=== PATIENT | female | born 1965 | race Caucasian/White ===

== ENCOUNTER 2019-12-28 01:42 | Emergency (ER) | payer BC ==
[2019-12-28 02:10] LABS: BASOPHIL % 0.3 % (0.0-0.4); Basophil (Absolute #) 0.02 (0-0.4); Eosinophil % 2.8 % (0.00-5.0); Eosinophil (Absolute #) 0.21 (0-0.5); Hematocrit 40.1 % (35-47); Hemoglobin 13.4 gm/dl (12.0-16.0); Lymphocyte (Absolute #) 2.26 (1.0-4.6); Lymphocytes % 30.2 % (24.0-44.0); Mean Cell Volume 93.3 fl (78-100); Mean Corpuscular Hemoglobin 31.2 pg (26-32); Mean Corpuscular Hgb Concent. 33.4 g/dl (32-36); Mean Platelet Volume 8.8 fl (7.5-11.0); Monocytes % 10.7 % (0.0-12.0); Platelet Count 311 K/mm3 (150-450); Red Cell Distribution Width 12.6 % (11.5-14.0); White Blood Count 7.5 K/mm3 (4.0-10.5)
--- NOTE | 2019-12-28 02:11 | ERPHSYRPT ---
- History of Present Illness Time Seen by Provider: 12/28/19 01:44 Source: patient Exam Limitations: no limitations Patient Subjective Stated Complaint: "I just felt real hyped up all of sudden and felt like I was going to pass out." Triage Nursing Assessment: . Physician History: 54 yo wf awoke w palpatations/diaphoresis/nause/lightheadedness that lasted 15min. She denies vomiting/chest pain/dyspnea/fever/melena/hematochezia/focal weakness. She has been taking Claritin-D for about 10 days w last dose this AM. Timing/Duration: hour(s) (Staerted 1 hr ago and lasted 15min) Activities at Onset: sleep Quality: other (No chest pain) Location: other (No chest pain) Chest Pain Radiation: no radiation Severity of Pain-Max: none Severity of Pain-Current: none Modifying Factors: Improves With: nothing Nitro Today/Relief: no nitro taken today Aspirin Treatment Today: no aspirin today Associated Symptoms: nausea, diaphoresis, No vomiting, No abdominal pain, No shortness of breath, No heartburn, No cough, No chills, No chest pain, No fever , No headaches, No loss of appetite, No malaise, No rash, No syncope, No seizure , No weakness Prior Chest Pain/Cardiac Workup: no prior chest pain, no prior cardiac workup Allergies/Adverse Reactions: No Known Drug Allergies Allergy (Unverified 12/28/19 01:45) Home Medications: Dexlansoprazole [Dexilant] 60 mg PO BID 01/29/15 [History] Levothyroxine Sodium 50 mcg 12/28/19 [History] Hx Tetanus, Diphtheria Vaccination/Date Given: No Hx Influenza Vaccination/Date Given: No Travel Risk - International Travel Have you traveled outside of the country in past 3 weeks: No Have you or anyone close to you been diagnosed with or: No Do your reside in a community with a known COVID-19 case?: Yes If Yes where:: [facility] - Coronavirus Screening Has patient experienced Coronavirus symptoms: No - Review of Systems Constitutional: No Symptoms Eyes: No Symptoms Ears, Nose, & Throat: No Symptoms Respiratory: No Symptoms Cardiac: Palpitations Abdominal/Gastrointestinal: Nausea, No Abdominal Pain, No Vomiting, No Diarrhea , No Constipation, No Hematemesis, No Hematochezia, No Melena, No Appetite Changes Genitourinary Symptoms: No Symptoms Musculoskeletal: No Symptoms Skin: No Symptoms Neurological: No Symptoms, Dizziness Psychological: No Symptoms Endocrine: No Symptoms Hematologic/Lymphatic: No Symptoms Immunological/Allergic: No Symptoms - Past Medical History Pertinent Past Medical History: Yes Neurological History: No Pertinent History ENT History: No Pertinent History Cardiac History: No Pertinent History Respiratory History: No Pertinent History Endocrine Medical History: No Pertinent History Musculoskeletal History: No Pertinent History GI Medical History: Gallbladder Disease History: No Pertinent History Psycho-Social History: No Pertinent History Female Reproductive Disorders: No Pertinent History - Past Surgical History Past Surgical History: Yes Neuro Surgical History: No Pertinent History Cardiac: No Pertinent History Respiratory: No Pertinent History Gastrointestinal: Cholecystectomy Genitourinary: No Pertinent History Musculoskeletal: No Pertinent History Female Surgical History: No Pertinent History - Social History Smoking Status: Former smoker Exposure to second hand smoke: No Drug Use: none Patient Lives Alone: No Significant Family History: no pertinent family hx - Nursing Vital Signs Nursing Vital Signs: Initial Vital Signs Temperature 98 F 12/28/19 01:43 Pulse Rate 80 12/28/19 01:43 Respiratory Rate 18 12/28/19 01:43 Blood Pressure 136/93 12/28/19 01:43 O2 Sat by Pulse Oximetry 100 12/28/19 01:43 Pain Scale Pain Intensity 0 - Physical Exam General Appearance: no apparent distress, anxiety Eye Exam: PERRL/EOMI, eyes nml inspection Ears, Nose, Throat Exam: normal ENT inspection, TMs normal, pharynx normal, moist mucous membranes Neck Exam: normal inspection, non-tender, supple, full range of motion Respiratory Exam: normal breath sounds, lungs clear, airway intact, No respiratory distress Cardiovascular Exam: regular rate/rhythm, normal heart sounds, normal peripheral pulses Gastrointestinal/Abdomen Exam: soft, normal bowel sounds Pelvic Exam: not done Rectal Exam: deferred Back Exam: normal inspection, normal range of motion, No CVA tenderness Extremity Exam: normal inspection, normal range of motion Neurologic Exam: alert, oriented x 3, cooperative, feeder associate II-XII nml as tested, normal mood/affect, nml cerebellar function, nml station & gait, sensation nml Skin Exam: normal color, warm, dry, No rash Lymphatic Exam: No adenopathy SpO2 Interpretation: normal SpO2: 100 O2 Delivery: Room Air - Course Nursing assessment & vital signs reviewed: Yes EKG Interpreted by Me: RATE (73), Sinus Rhythm, NORMAL INTERVALS, NORMAL QRS - Radiology Exams Chest X-ray Interpretation: Interpreted by me, Negative, No Pneumonia, No Pneumothorax , Nml Alignment, Nml Heart Size, No Infiltrates, Nml Mediastinum, Nml Soft Tissues Ordered Tests: Active Orders 24 hr Category Date Time Status EKG-ER Only STAT Care 12/28/19 01:45 Active CHEST 1 VIEW (PORTABLE) Stat Exams 12/28/19 01:45 Taken CBC W DIFF Stat Lab 12/28/19 02:11 Completed CMP Stat Lab 12/28/19 02:11 Completed PROTIME WITH INR Stat Lab 12/28/19 02:11 Completed PTT Stat Lab 12/28/19 02:11 Completed T4 (Thyroxine) Stat Lab 12/28/19 02:11 Completed TROPONIN Q3H Lab 12/28/19 02:11 Completed TROPONIN Q3H Lab 12/28/19 04:45 Ordered TROPONIN Q3H Lab 12/28/19 07:45 Ordered TROPONIN Q3H Lab 12/28/19 10:45 Ordered TROPONIN Q3H Lab 12/28/19 13:45 Ordered TSH, 3RD Generation Urgent Lab 12/28/19 02:11 Completed Urine Triage Profile Stat Lab 12/28/19 02:23 Completed Lab/Rad Data: Laboratory Result Diagrams 12/28/19 02:11 12/28/19 02:11 Laboratory Results 12/28/19 12/28/19 12/28/19 Range/Units 02:23 02:11 02:11 WBC (4.0-10.5) K/mm3 RBC (4.1-5.4) M/mm3 Hgb (12.0-16.0) gm/dl Hct (35-47) % MCV (78-100) fl MCH (26-32) pg MCHC (32-36) g/dl RDW (11.5-14.0) % Plt Count (150-450) K/mm3 MPV (7.5-11.0) fl Gran % (36.0-66.0) % Eos # (Auto) (0-0.5) Absolute Lymphs (auto) (1.0-4.6) Absolute Monos (auto) (0.0-1.3) Lymphocytes % (24.0-44.0) % Monocytes % (0.0-12.0) % Eosinophils % (0.00-5.0) % Basophils % (0.0-0.4) % Absolute Granulocytes (1.4-6.9) Basophils # (0-0.4) PT 12.2 (9.95-12.35) SECONDS INR 1.08 (0.8-3.0) APTT 31.1 (25.3-37.0) SECONDS Sodium (137-145) mmol/L Potassium (3.5-5.1) mmol/L Chloride (98-107) mmol/L Carbon Dioxide (22-30) mmol/L Anion Gap (5-15) MEQ/L BUN (7-17) mg/dL Creatinine (0.52-1.04) mg/dL Estimated GFR ML/MIN Glucose (74-106) mg/dL Calcium (8.4-10.2) mg/dL Total Bilirubin (0.2-1.3) mg/dL AST (14-36) U/L ALT (0-35) U/L Alkaline Phosphatase (38-126) U/L Troponin I < 0.012 (0.000-0.034) ng/mL Serum Total Protein (6.3-8.2) g/dL Albumin (3.5-5.0) g/dL Thyroxine (T4) (5.53-10.96) ug/dL TSH 3rd Generation 11.600 H (0.47-4.68) mIU/L Urine Opiates Level NEGATIVE (NEGATIVE) Ur Methadone NEGATIVE (NEGATIVE) Urine Barbiturates NEGATIVE (NEGATIVE) Ur Phencyclidine (PCP) NEGATIVE (NEGATIVE) Urine Amphetamine NEGATIVE (NEGATIVE) U Benzodiazepine Level NEGATIVE (NEGATIVE) Urine Cocaine NEGATIVE (NEGATIVE) Urine Marijuana (THC) NEGATIVE (NEGATIVE) 12/28/19 12/28/19 Range/Units 02:11 02:11 WBC 7.5 (4.0-10.5) K/mm3 RBC 4.30 (4.1-5.4) M/mm3 Hgb 13.4 (12.0-16.0) gm/dl Hct 40.1 (35-47) % MCV 93.3 (78-100) fl MCH 31.2 (26-32) pg MCHC 33.4 (32-36) g/dl RDW 12.6 (11.5-14.0) % Plt Count 311 (150-450) K/mm3 MPV 8.8 (7.5-11.0) fl Gran % 56.0 (36.0-66.0) % Eos # (Auto) 0.21 (0-0.5) Absolute Lymphs (auto) 2.26 (1.0-4.6) Absolute Monos (auto) 0.80 (0.0-1.3) Lymphocytes % 30.2 (24.0-44.0) % Monocytes % 10.7 (0.0-12.0) % Eosinophils % 2.8 (0.00-5.0) % Basophils % 0.3 (0.0-0.4) % Absolute Granulocytes 4.20 (1.4-6.9) Basophils # 0.02 (0-0.4) PT (9.95-12.35) SECONDS INR (0.8-3.0) APTT (25.3-37.0) SECONDS Sodium 139 (137-145) mmol/L Potassium 3.4 L (3.5-5.1) mmol/L Chloride 104 (98-107) mmol/L Carbon Dioxide 28 (22-30) mmol/L Anion Gap 10.7 (5-15) MEQ/L BUN 15 (7-17) mg/dL Creatinine 0.70 (0.52-1.04) mg/dL Estimated GFR > 60.0 ML/MIN Glucose 130 H (74-106) mg/dL Calcium 9.3 (8.4-10.2) mg/dL Total Bilirubin 0.30 (0.2-1.3) mg/dL AST 28 (14-36) U/L ALT 16 (0-35) U/L Alkaline Phosphatase 45 (38-126) U/L Troponin I (0.000-0.034) ng/mL Serum Total Protein 7.1 (6.3-8.2) g/dL Albumin 4.2 (3.5-5.0) g/dL Thyroxine (T4) 9.16 (5.53-10.96) ug/dL TSH 3rd Generation (0.47-4.68) mIU/L Urine Opiates Level (NEGATIVE) Ur Methadone (NEGATIVE) Urine Barbiturates (NEGATIVE) Ur Phencyclidine (PCP) (NEGATIVE) Urine Amphetamine (NEGATIVE) U Benzodiazepine Level (NEGATIVE) Urine Cocaine (NEGATIVE) Urine Marijuana (THC) (NEGATIVE) - Progress Progress: improved Air Movement: good Progress Note: 12/28/19 03:04 Pt stable throughout stay wo chest pain/dyspnea/evidence of any tachycardia. EKG and CXR wnl. Troponin wnl. T4 high normal w equivical elevated TSH. Will dc pt w PCP follow up next week. Counseled pt/family regarding: lab results, diagnosis, need for follow-up, rad results - Departure Departure Disposition: Home Clinical Impression: Intermittent palpitations Condition: Stable Critical Care Time: No Referrals: Provider,Unknown [Primary Care Provider] - Instructions: Palpitations (DC) Additional Instructions: Follow up with family MD next week. Return to ER for chest pain or shortness of breath.
[2019-12-28 02:17] LABS: INR 1.08 (0.8-3.0); PROTIME 12.2 SECONDS (9.95-12.35)
[2019-12-28 02:20] LABS: PTT 31.1 SECONDS (25.3-37.0)
[2019-12-28 02:38] LABS: ALBUMIN 4.2 g/dL (3.5-5.0); ALKALINE PHOSPHATASE 45 U/L (38-126); ANION GAP 10.7 MEQ/L (5-15); BLOOD UREA NITROGEN 15 mg/dL (7-17); CHLORIDE 104 mmol/L (98-107); Calcium 9.3 mg/dL (8.4-10.2); Carbon Dioxide 28 mmol/L (22-30); Glucose 130 mg/dL (74-106); Potassium 3.4 mmol/L (3.5-5.1); SGOT/AST 28 U/L (14-36); SGPT/ALT 16 U/L (0-35); SODIUM 139 mmol/L (137-145); T4 (Thyroxine) 9.16 ug/dL (5.53-10.96); Total Protein 7.1 g/dL (6.3-8.2)
[2019-12-28 02:41] LABS: Amphetamine,Urine NEGATIVE (NEGATIVE); Barbiturate,Urine NEGATIVE (NEGATIVE); Benzodiazepine,Urine NEGATIVE (NEGATIVE); Cocaine,Urine NEGATIVE (NEGATIVE); Methadone,Urine NEGATIVE (NEGATIVE); Opiate,Urine NEGATIVE (NEGATIVE); PCP,Urine NEGATIVE (NEGATIVE); THC,Urine NEGATIVE (NEGATIVE)
[2019-12-28 02:57] LABS: TROPONIN < 0.012 ng/mL (0.000-0.034)
[2019-12-28 03:01] VITALS: BP 125/81; PULSE 65
[2019-12-28 03:07] VITALS: O2SAT 100
--- NOTE | 2019-12-28 06:40 | XRAY ---
Indication: Palpitations. Comparison: January 29, 2015. Portable chest again demonstrates normal heart and lungs. Bony thorax intact again with mild dextroscoliosis. No new/acute findings.
== END 2019-12-28 03:13 | disposition home or self-care (01) ==
LOC: ED 01:42
DX: R00.2 Palpitations (principal); R42 Dizziness and giddiness
CPT/HCPCS: 36000; 36415; 71045; 80053; 80307; 84436; 84443; 84484; 85025; 85610; 85730; 93005; 99284

== ENCOUNTER 2020-06-12 06:05 | Day surgery (SDC) | payer BC ==
[2020-06-12] MEDS ORDERED: Lactated Ringers 1,000 ML IV SCH (06:30)
[2020-06-12] MEDS ORDERED: DIPRIVAN 200 MG/20 ML IV ONE ×2 (07:03→07:17)
[2020-06-12] MEDS ORDERED: Versed 2 MG/2 ML Injection ONE (07:03)
[2020-06-12 08:19] VITALS: BP 119/84; PULSE 71; O2SAT 99
--- NOTE | 2020-06-12 09:09 | OP ---
SURGERY DATE/TIME: 06/12/2020 0705 PREOPERATIVE DIAGNOSIS: Screening exam. POSTOPERATIVE DIAGNOSIS: Normal colon. PROCEDURE: Colonoscopy. SURGEON: Dr. Roach. ANESTHESIA: MAC. Medications given by anesthesia department. HISTORY: The patient is a 54 year old white female who presents now for screening colonoscopy. The patient was appraised of the risks of the procedure including the risk of perforation, phlebitis, untoward reaction to medication, bleeding and missed lesions. The patient verbalized her understanding and desired to have the procedure performed. DESCRIPTION OF PROCEDURE: The patient was given the medications by the anesthesia department. She had continuous pulse oximetry, ECG monitoring, intermittent blood pressure monitoring and tidal CO2 monitoring during the examination. She was placed in the left lateral decubitus position. A digital rectal examination was performed and revealed normal anal sphincter tone and no masses. The flexible Olympus pediatric colonoscope was used to intubate the rectum. A view of the colon was developed sequentially to the cecum. We also had a view inside the terminal ileum. Upon insertion and withdrawal, including a retroflex view in the rectum, no mucosal lesions were encountered. The scope was removed from the patient who tolerated the procedure well and was sent back to OP recovery in good condition. The prep was noted to be fair to good.
== END 2020-06-12 08:30 | disposition home or self-care (01) ==
LOC: SDC 06:05
PROVIDERS: ATTEND Family Medicine
DX: Z12.11 Encounter for screening for malignant neoplasm of colon (principal)
CPT/HCPCS: 94250; J2250; J2704

== ENCOUNTER 2021-08-24 01:23 | Emergency (ER) | payer BC ==
[2021-08-24 01:48] LABS: Basophil (Absolute #) 0.03 (0-0.4); Eosinophil % 2.1 % (0.00-5.0); Eosinophil (Absolute #) 0.22 (0-0.5); Hematocrit 42.2 % (35-47); Hemoglobin 13.7 gm/dl (12.0-16.0); Lymphocyte (Absolute #) 2.65 (1.0-4.6); Lymphocytes % 25.1 % (24.0-44.0); Mean Cell Volume 93.2 fl (78-100); Mean Corpuscular Hemoglobin 30.2 pg (26-32); Mean Corpuscular Hgb Concent. 32.5 g/dl (32-36); Mean Platelet Volume 8.9 fl (7.5-11.0); Monocyte (Absolute #) 0.84 (0.0-1.3); Neutrophil % 64.5 % (36.0-66.0); Platelet Count 372 K/mm3 (150-450); Red Blood Count 4.53 M/mm3 (4.1-5.4); Red Cell Distribution Width 12.9 % (11.5-14.0); White Blood Count 10.5 K/mm3 (4.0-10.5)
[2021-08-24 02:08] LABS: ALBUMIN 4.5 g/dL (3.5-5.0); ALKALINE PHOSPHATASE 55 U/L (38-126); ANION GAP 13.6 MEQ/L (5-15); BLOOD UREA NITROGEN 19 mg/dL (7-17); CHLORIDE 104 mmol/L (98-107); Calcium 9.6 mg/dL (8.4-10.2); Carbon Dioxide 27 mmol/L (22-30); Creatinine 1 0.75 mg/dL (0.52-1.04); EST GLOMERULAR FILTRATION RATE > 60.0 ML/MIN; Glucose 106 mg/dL (74-106); NT PRO BNP 14.3 pg/mL (0-900); Potassium 3.9 mmol/L (3.5-5.1); SGOT/AST 29 U/L (14-36); SGPT/ALT 22 U/L (0-35); SODIUM 141 mmol/L (137-145); Total Protein 7.1 g/dL (6.3-8.2)
[2021-08-24 02:16] LABS: Amphetamine,Urine NEGATIVE (NEGATIVE); Barbiturate,Urine NEGATIVE (NEGATIVE); Benzodiazepine,Urine NEGATIVE (NEGATIVE); Cocaine,Urine NEGATIVE (NEGATIVE); Methadone,Urine NEGATIVE (NEGATIVE); Opiate,Urine NEGATIVE (NEGATIVE); PCP,Urine NEGATIVE (NEGATIVE); THC,Urine NEGATIVE (NEGATIVE)
--- NOTE | 2021-08-24 03:58 | ERPHSYRPT ---
- History of Present Illness Time Seen by Provider: 08/24/21 01:30 Historian: patient Exam Limitations: no limitations Patient Subjective Stated Complaint: pt states "I have a stress test scheduled for Monday. I was having palpitations tonight." Triage Nursing Assessment: pt ambulated into the er; pt is axo x4; c/o palpitations; pt states 2/10 pain to epigastric region; no edema present; clear apical heart tone; clear lung sounds in all lobes; strong scar radial pulses; strong scar pedal pulses; vitals wnl Physician History: Patient is a 55-year-old female presents to our ED with complaints of heart palpitations. Patient was at home relaxing when symptoms occurred. Patient states she currently is scheduled to undergo a cardiac stress test. Her stress test is scheduled for Monday. No nitesh chest pain but her symptoms were rated at 2 out of 10. No associated nausea vomiting or diaphoresis. No trauma. No diarrhea. No rash. Symptoms were mild in intensity. No specific worsening or improving factors. Patient voices no other complaints or concerns at this time. Timing/Duration: today Activities at Onset: none Quality: pressure Location: substernal Chest Pain Radiation: no radiation Severity of Pain-Max: moderate Severity of Pain-Current: mild Modifying Factors: Improves With: nothing (Patient took a full dose of aspirin prior to arrival. 325 mg.) Associated Symptoms: denies symptoms Prior Chest Pain/Cardiac Workup: no prior chest pain Nitro Today/Relief: no nitro taken today Aspirin Treatment Today: 325 mg x 1 Allergies/Adverse Reactions: No Known Drug Allergies Allergy (Verified 08/24/21 01:25) Home Medications: Levothyroxine Sodium 50 mcg PO DAILY 12/28/19 [History] Aspirin EC 325 mg [Ecotrin 325 MG] 325 mg PO DAILY 05/27/20 [History] Ibuprofen 600 mg PO TID PRN PRN 05/27/20 [History] Loratadine/Pseudoephedrine [Claritin-D 12 Hour Tablet] 1 each PO DAILY 05/27/20 [History] Multivitamin [Multivitamins] 1 each PO DAILY 05/27/20 [History] Hx Tetanus, Diphtheria Vaccination/Date Given: No Hx Influenza Vaccination/Date Given: No Travel Risk - International Travel Have you traveled outside of the country in past 3 weeks: No - Coronavirus Screening Are you exhibiting any of the following symptoms?: No Close contact with a COVID-19 positive Pt in past 14-21 Days: No - Vaccine Status Have you recieved a Covid-19 vaccination: Yes 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: [place] - Vaccination Dates Date of 2cond Vaccination (if applicable): n/a - Review of Systems Constitutional: No Symptoms, No Fever, No Chills Eyes: No Symptoms Ears, Nose, & Throat: No Symptoms Respiratory: No Symptoms, No Cough, No Dyspnea Cardiac: No Symptoms, No Chest Pain, No Edema, No Syncope Abdominal/Gastrointestinal: No Symptoms, No Abdominal Pain, No Nausea, No Vomiting, No Diarrhea Genitourinary Symptoms: No Symptoms, No Dysuria Musculoskeletal: No Symptoms, No Back Pain, No Neck Pain Skin: No Symptoms, No Rash Neurological: No Symptoms, No Dizziness, No Focal Weakness, No Sensory Changes Psychological: No Symptoms Endocrine: No Symptoms Hematologic/Lymphatic: No Symptoms Immunological/Allergic: No Symptoms All Other Systems: Reviewed and Negative - Past Medical History Pertinent Past Medical History: Yes Neurological History: No Pertinent History ENT History: No Pertinent History Cardiac History: No Pertinent History Respiratory History: No Pertinent History Endocrine Medical History: Hypothyroidism Musculoskeletal History: No Pertinent History GI Medical History: GERD, Gallbladder Disease History: No Pertinent History Psycho-Social History: No Pertinent History Female Reproductive Disorders: No Pertinent History Other Medical History: Hashimotos. GERD - Past Surgical History Past Surgical History: Yes Neuro Surgical History: No Pertinent History Cardiac: No Pertinent History Respiratory: No Pertinent History Gastrointestinal: Cholecystectomy Genitourinary: No Pertinent History Musculoskeletal: No Pertinent History Female Surgical History: Other Other Surgical History: uterine ablation, oral surgery - Social History Smoking Status: Former smoker Exposure to second hand smoke: No Drug Use: none Patient Lives Alone: No Significant Family History: no pertinent family hx - Nursing Vital Signs Nursing Vital Signs: Initial Vital Signs Temperature 97.4 F 08/24/21 01:25 Pulse Rate 96 H 08/24/21 01:25 Respiratory Rate 16 08/24/21 01:25 Blood Pressure 141/87 08/24/21 01:25 O2 Sat by Pulse Oximetry 100 08/24/21 01:25 Pain Scale Pain Intensity 0 - Physical Exam General Appearance: no apparent distress, alert Eye Exam: PERRL/EOMI, eyes nml inspection Ears, Nose, Throat Exam: normal ENT inspection, TMs normal, pharynx normal, moist mucous membranes Neck Exam: normal inspection, non-tender, supple, full range of motion Respiratory Exam: normal breath sounds, lungs clear, airway intact, No chest tenderness, No respiratory distress Cardiovascular Exam: regular rate/rhythm, normal heart sounds Gastrointestinal/Abdomen Exam: soft, No tenderness, No mass Back Exam: normal inspection, No CVA tenderness, No vertebral tenderness Extremity Exam: normal inspection, normal range of motion Neurologic Exam: alert, oriented x 3, cooperative, normal mood/affect, sensation nml, No motor deficits Skin Exam: normal color, warm, dry Lymphatic Exam: No adenopathy SpO2 Interpretation: normal SpO2: 98 O2 Delivery: Room Air - Course Nursing assessment & vital signs reviewed: Yes EKG Interpreted by Me: RATE (84), Sinus Rhythm, NORMAL AXIS, NORMAL INTERVALS - Radiology Exams Chest X-ray Interpretation: Interpreted by me (Lungs are clear, normal cardiac silhouette. Intact bony thorax. Scoliosis) Ordered Tests: Active Orders 24 hr Category Date Time Status Manager Brand STAT Care 08/24/21 01:32 Active EKG-ER Only STAT Care 08/24/21 01:32 Active IV Insertion STAT Care 08/24/21 01:32 Active Pulse Oximetry (ED) STAT Care 08/24/21 01:32 Active CHEST 1 VIEW (PORTABLE) Stat Exams 08/24/21 01:32 Taken CBC W DIFF Stat Lab 08/24/21 01:30 Completed CMP Stat Lab 08/24/21 01:30 Completed NT PRO BNP Stat Lab 08/24/21 01:30 Completed TROPONIN Q3H Lab 08/24/21 01:30 Completed TROPONIN Q3H Lab 08/24/21 04:25 Completed TROPONIN Q3H Lab 08/24/21 07:45 Ordered TROPONIN Q3H Lab 08/24/21 10:45 Ordered TROPONIN Q3H Lab 08/24/21 13:45 Ordered Urine Triage Profile Stat Lab 08/24/21 01:46 Completed Lab/Rad Data: Laboratory Result Diagrams 08/24/21 01:30 08/24/21 01:30 Laboratory Results 08/24/21 08/24/21 08/24/21 Range/Units 04:25 01:46 01:30 WBC (4.0-10.5) K/mm3 RBC (4.1-5.4) M/mm3 Hgb (12.0-16.0) gm/dl Hct (35-47) % MCV (78-100) fl MCH (26-32) pg MCHC (32-36) g/dl RDW (11.5-14.0) % Plt Count (150-450) K/mm3 MPV (7.5-11.0) fl Gran % (36.0-66.0) % Eos # (Auto) (0-0.5) Absolute Lymphs (auto) (1.0-4.6) Absolute Monos (auto) (0.0-1.3) Lymphocytes % (24.0-44.0) % Monocytes % (0.0-12.0) % Eosinophils % (0.00-5.0) % Basophils % (0.0-0.4) % Absolute Granulocytes (1.4-6.9) Basophils # (0-0.4) Sodium (137-145) mmol/L Potassium (3.5-5.1) mmol/L Chloride (98-107) mmol/L Carbon Dioxide (22-30) mmol/L Anion Gap (5-15) MEQ/L BUN (7-17) mg/dL Creatinine (0.52-1.04) mg/dL Estimated GFR ML/MIN Glucose (74-106) mg/dL Calcium (8.4-10.2) mg/dL Total Bilirubin (0.2-1.3) mg/dL AST (14-36) U/L ALT (0-35) U/L Alkaline Phosphatase (38-126) U/L Troponin I < 0.012 < 0.012 (0.000-0.034) ng/mL NT-Pro-B Natriuret Pep (0-900) pg/mL Serum Total Protein (6.3-8.2) g/dL Albumin (3.5-5.0) g/dL Urine Opiates Level NEGATIVE (NEGATIVE) Ur Methadone NEGATIVE (NEGATIVE) Urine Barbiturates NEGATIVE (NEGATIVE) Ur Phencyclidine (PCP) NEGATIVE (NEGATIVE) Urine Amphetamine NEGATIVE (NEGATIVE) U Benzodiazepine Level NEGATIVE (NEGATIVE) Urine Cocaine NEGATIVE (NEGATIVE) Urine Marijuana (THC) NEGATIVE (NEGATIVE) 08/24/21 08/24/21 Range/Units 01:30 01:30 WBC 10.5 (4.0-10.5) K/mm3 RBC 4.53 (4.1-5.4) M/mm3 Hgb 13.7 (12.0-16.0) gm/dl Hct 42.2 (35-47) % MCV 93.2 (78-100) fl MCH 30.2 (26-32) pg MCHC 32.5 (32-36) g/dl RDW 12.9 (11.5-14.0) % Plt Count 372 (150-450) K/mm3 MPV 8.9 (7.5-11.0) fl Gran % 64.5 (36.0-66.0) % Eos # (Auto) 0.22 (0-0.5) Absolute Lymphs (auto) 2.65 (1.0-4.6) Absolute Monos (auto) 0.84 (0.0-1.3) Lymphocytes % 25.1 (24.0-44.0) % Monocytes % 8.0 (0.0-12.0) % Eosinophils % 2.1 (0.00-5.0) % Basophils % 0.3 (0.0-0.4) % Absolute Granulocytes 6.80 (1.4-6.9) Basophils # 0.03 (0-0.4) Sodium 141 (137-145) mmol/L Potassium 3.9 (3.5-5.1) mmol/L Chloride 104 (98-107) mmol/L Carbon Dioxide 27 (22-30) mmol/L Anion Gap 13.6 (5-15) MEQ/L BUN 19 H (7-17) mg/dL Creatinine 0.75 (0.52-1.04) mg/dL Estimated GFR > 60.0 ML/MIN Glucose 106 (74-106) mg/dL Calcium 9.6 (8.4-10.2) mg/dL Total Bilirubin 0.40 (0.2-1.3) mg/dL AST 29 (14-36) U/L ALT 22 (0-35) U/L Alkaline Phosphatase 55 (38-126) U/L Troponin I (0.000-0.034) ng/mL NT-Pro-B Natriuret Pep 14.3 (0-900) pg/mL Serum Total Protein 7.1 (6.3-8.2) g/dL Albumin 4.5 (3.5-5.0) g/dL Urine Opiates Level (NEGATIVE) Ur Methadone (NEGATIVE) Urine Barbiturates (NEGATIVE) Ur Phencyclidine (PCP) (NEGATIVE) Urine Amphetamine (NEGATIVE) U Benzodiazepine Level (NEGATIVE) Urine Cocaine (NEGATIVE) Urine Marijuana (THC) (NEGATIVE) - Progress Progress: improved Air Movement: good Progress Note: Patient reassessed. She feels well. Chest x-ray negative. Troponin negative x2. Patient remains pain-free. No palpitations occurred or chest pain while patient in our ED. Patient states he is ready for discharge. Patient has an outpatient cardiac stress test scheduled for Monday. Patient voices no other complaints or concerns at this time. Portions of this note were created with voice recognition technology. There may be grammatical, spelling, punctuation or sound alike errors 08/24/21 05:27 Blood Culture(s) Obtained: No Antibiotics given: No Counseled pt/family regarding: lab results, diagnosis, rad results - Departure Departure Disposition: Home Clinical Impression: Heart palpitations Condition: Stable Critical Care Time: No Referrals: MARTHA VILLEGAS MD [Primary Care Provider] - Follow up/PCP as directed Additional Instructions: Discharge/Care Plan CAYLA GREENE was seen on 08/24/21 in the Emergency Room. The patient was counseled regarding Diagnosis,Lab results, Imaging studies, need for follow up and when to return to the Emergency Room. Prescriptions given: Discharge Note I have spoken with the patient and/or caregivers. I have explained the patient's condition, diagnosis and treatment plan based on the information available to me at this time. I have answered the patient's and/or caregiver's questions and addressed any concerns. The patient and/or caregivers have as good understanding of the patient's diagnosis, condition and treatment plan as can be expected at this point. The vital signs have been stable. The patient's condition is stable and appropriate for discharge from the emergency department. The patient will pursue further outpatient evaluation with the primary care phys ician or other designated or consulting physician as outlined in the discharge instructions. The patient and/or caregivers are agreeable to this plan of care and follow-up instructions have been explained in detail. The patient and/or caregivers have received these instruction. The patient/and or caregivers are aware that any significant change in condition or worsening of symptoms should prompt an immediate return to this or the closest emergency department or call 911.
[2021-08-24 05:06] VITALS: BP 107/68; PULSE 65
[2021-08-24 05:30] VITALS: O2SAT 98
--- NOTE | 2021-08-24 08:50 | XRAY ---
Indication: Chest pain. Comparison: April 26, 2021. Portable chest again demonstrates normal heart and lungs. Bony thorax intact with mild scoliosis. No new/acute findings.
== END 2021-08-24 05:39 | disposition home or self-care (01) ==
LOC: ED 01:23
DX: R00.2 Palpitations (principal); K21.9 Gastro-esophageal reflux disease without esophagitis; Z79.899 Other long term (current) drug therapy
CPT/HCPCS: 36000; 36415; 71045; 80053; 80307; 83880; 84484; 85025; 93005; 93041; 94760; 99284

== ENCOUNTER 2022-04-02 12:30 | Emergency (ER) | payer BC ==
--- NOTE | 2022-04-02 12:34 | ERPHSYRPT ---
- History of Present Illness Time Seen by Provider: 04/02/22 12:34 Historian: patient Exam Limitations: no limitations Physician History: This is a 56-year-old white female patient who presents with bilateral lower quadrant abdominal pain that has been present for approximately 2 weeks. There was a period of time, after she was treated for urinary tract infection, where she was feeling little better. However the last few days symptoms have recurred/returned. She also has associated low-grade fever. Patient has a history of hypothyroidism and seasonal allergies. She also was complaining now of some bilateral flank pain which she did not have before. She denies chest pain and she denies shortness of breath Timing/Duration: week(s) (2) Quality: aching, cramping Abdominal Pain Onset Location: RLQ, LLQ Pain Radiation: flank Severity of Pain-Max: mild (To moderate) Severity of Pain-Current: mild (To moderate) Modifying Factors: Improves With: nothing Associated Symptoms: fever/chills, No chest pain, No nausea, No neck pain, No shortness of breath, No vomiting Previous symptoms: same symptoms as today, recently seen, recently treated Allergies/Adverse Reactions: No Known Drug Allergies Allergy (Verified 04/02/22 12:45) Home Medications: Levothyroxine Sodium 50 mcg PO DAILY 12/28/19 [History] Aspirin EC 325 mg [Ecotrin 325 MG] 325 mg PO DAILY 05/27/20 [History] Atorvastatin Calcium 10 mg PO DAILY 04/02/22 [History] Hx Tetanus, Diphtheria Vaccination/Date Given: No Hx Influenza Vaccination/Date Given: No Travel Risk - International Travel Have you traveled outside of the country in past 3 weeks: No - Coronavirus Screening Are you exhibiting any of the following symptoms?: Yes Symptoms: Fever - Vaccine Status Have you recieved a Covid-19 vaccination: Yes [employer]: [employer] - Vaccination Dates Date of 2cond Vaccination (if applicable): n/a - Review of Systems Constitutional: Fever Eyes: No Symptoms Ears, Nose, & Throat: No Symptoms Respiratory: No Symptoms Cardiac: No Symptoms Abdominal/Gastrointestinal: Abdominal Pain, No Nausea, No Vomiting, No Diarrhea, No Constipation Genitourinary Symptoms: No Symptoms Musculoskeletal: No Symptoms Skin: No Symptoms Neurological: No Symptoms Psychological: No Symptoms Endocrine: No Symptoms Hematologic/Lymphatic: No Symptoms Immunological/Allergic: No Symptoms All Other Systems: Reviewed and Negative - Past Medical History Pertinent Past Medical History: Yes Neurological History: No Pertinent History ENT History: No Pertinent History Cardiac History: No Pertinent History Respiratory History: Other Endocrine Medical History: Hypothyroidism Musculoskeletal History: Osteoarthritis GI Medical History: GERD, Gallbladder Disease History: No Pertinent History Psycho-Social History: No Pertinent History Female Reproductive Disorders: No Pertinent History Other Medical History: BRONCHIAL ISSUES SINCE HAVING COVID, USES AN INHALER. PT HAD COVID IN 02/2021 AND ONCE BEFORE. - Past Surgical History Past Surgical History: Yes Neuro Surgical History: No Pertinent History Cardiac: No Pertinent History Respiratory: No Pertinent History Gastrointestinal: Cholecystectomy Genitourinary: No Pertinent History Musculoskeletal: No Pertinent History Female Surgical History: Other Other Surgical History: uterine ablation, oral surgery - Social History Smoking Status: Former smoker Exposure to second hand smoke: No Drug Use: none Patient Lives Alone: No Significant Family History: no pertinent family hx - Nursing Vital Signs Nursing Vital Signs: Initial Vital Signs Temperature 98.9 F 04/02/22 12:40 Pulse Rate 104 H 04/02/22 12:40 Respiratory Rate 16 04/02/22 12:40 O2 Sat by Pulse Oximetry 97 04/02/22 12:40 Pain Scale Pain Intensity 4 - Physical Exam General Appearance: no apparent distress, alert, anxiety Eye Exam: PERRL/EOMI, eyes nml inspection Ears, Nose, Throat Exam: normal ENT inspection, moist mucous membranes Neck Exam: normal inspection, non-tender, supple, full range of motion Respiratory Exam: normal breath sounds, lungs clear, airway intact, No chest tenderness, No respiratory distress Cardiovascular Exam: regular rate/rhythm, normal heart sounds, normal peripheral pulses Gastrointestinal/Abdomen Exam: soft, normal bowel sounds, tenderness (Bilateral lower quadrants), guarding (Bilateral lower quadrants with palpation), No pulsatile mass, No rebound Pelvic Exam: not done, other (Patient recently had a negative pelvic exam performed by gynecology.) Rectal Exam: not done Back Exam: normal inspection, normal range of motion, CVA tenderness (Bilateral mild), No vertebral tenderness Extremity Exam: normal inspection, normal range of motion, pelvis stable Neurologic Exam: alert, oriented x 3, cooperative, resident physician in radiology II-XII nml as tested, normal mood/affect, nml cerebellar function, nml station & gait, sensation nml Skin Exam: normal color, warm, dry Lymphatic Exam: No adenopathy SpO2 Interpretation: normal O2 Delivery: Room Air - Course Nursing assessment & vital signs reviewed: Yes Ordered Tests: Active Orders 24 hr Category Date Time Status IV Insertion STAT Care 04/02/22 12:58 Active ABDOMEN AND PELVIS W/0 CONTRAS [CT] Stat Exams 04/02/22 12:59 Taken AMYLASE Stat Lab 04/02/22 13:18 Completed CBC W DIFF Stat Lab 04/02/22 13:18 Completed CMP Stat Lab 04/02/22 13:18 Completed LIPASE Stat Lab 04/02/22 13:18 Completed Lactic Acid Stat Lab 04/02/22 12:58 Completed UA W/RFX CULTURE Stat Lab 04/02/22 13:18 Completed Medication Summary Discontinued Medications Generic Name Dose Route Start Last Admin Trade Name Freq PRN Reason Stop Dose Admin Sodium Chloride 1,000 mls @ 999 mls/hr 04/02/22 12:58 04/02/22 13:49 Sodium Chloride 0.9% 1000 Ml IV 04/02/22 13:58 999 mls/hr .Q1H1M STA Administration Sodium Chloride Confirm 04/02/22 13:47 Sodium Chloride 0.9% 1000 Ml Administered 04/02/22 13:48 Dose 1,000 mls @ ud .ROUTE .K-MED ONE Lab/Rad Data: Laboratory Result Diagrams 04/02/22 13:18 04/02/22 13:18 Laboratory Results 04/02/22 04/02/22 04/02/22 Range/Units 13:18 13:18 13:18 WBC 12.5 H (4.0-10.5) x10^3/uL RBC 4.67 (4.1-5.4) x10^6/uL Hgb 14.2 (12.0-16.0) g/dL Hct 43.7 (35-47) % MCV 93.6 (78-100) fL MCH 30.4 (26-32) pg MCHC 32.5 (32-36) g/dL RDW 13.3 (11.5-14.0) % Plt Count 326 (150-450) x10^3/uL MPV 9.6 (7.5-11.0) fL Gran % 74.9 H (36.0-66.0) % Immature Gran % (Auto) 0.3 (0.00-0.4) % Nucleat RBC Rel Count 0.0 (0.00-0.1) % Eos # (Auto) 0.11 (0-0.5) x10^3/uL Immature Gran # (Auto) 0.04 H (0.00-0.03) x10^3u/L Absolute Lymphs (auto) 1.89 (1.0-4.6) x10^3/uL Absolute Monos (auto) 1.04 (0.0-1.3) x10^3/uL Absolute Nucleated RBC 0.00 (0.00-0.01) x10^3u/L Lymphocytes % 15.2 L (24.0-44.0) % Monocytes % 8.3 (0.0-12.0) % Eosinophils % 0.9 (0.00-5.0) % Basophils % 0.4 (0.0-0.4) % Absolute Granulocytes 9.34 H (1.4-6.9) x10^3/uL Basophils # 0.05 (0-0.4) x10^3/uL Sodium 142 (137-145) mmol/L Potassium 4.1 (3.5-5.1) mmol/L Chloride 106 (98-107) mmol/L Carbon Dioxide 25 (22-30) mmol/L Anion Gap 15.6 H (5-15) MEQ/L BUN 15 (7-17) mg/dL Creatinine 0.75 (0.52-1.04) mg/dL Estimated GFR > 60.0 ML/MIN Glucose 99 (74-106) mg/dL Lactic Acid (0.4-2.0) Calcium 9.3 (8.4-10.2) mg/dL Total Bilirubin 0.70 (0.2-1.3) mg/dL AST 30 (14-36) U/L ALT 20 (0-35) U/L Alkaline Phosphatase 51 (38-126) U/L Serum Total Protein 7.8 (6.3-8.2) g/dL Albumin 4.8 (3.5-5.0) g/dL Amylase 61 (30-110) U/L Lipase 40 (23-300) U/L Urinalys Dipstick Clnc MAIN LAB Urine Color YELLOW (YELLOW) Urine Appearance CLEAR (CLEAR) Urine pH 7.0 (5-6) Ur Specific [place] 1.015 (1.005-1.025) POC Urine Protein Conf NEGATIVE (Negative) Urine Ketones NEGATIVE (NEGATIVE) Urine Nitrite NEGATIVE (NEGATIVE) Urine Bilirubin NEGATIVE (NEGATIVE) Urine Urobilinogen 0.2 (0-1) mg/dL Urine Leukocytes NEGATIVE (NEGATIVE) Urine WBC (Auto) NONE (0-5) /HPF Urine RBC (Auto) 0-2 (0-2) /HPF U Epithel Cells (Auto) NONE (FEW) /HPF Urine Bacteria (Auto) NONE (NEGATIVE) /HPF Urine RBC SMALL (0-5) Trell/ul Ur Culture Indicated? NO Urine Glucose NEGATIVE (NEGATIVE) mg/dL 04/02/22 Range/Units 12:58 WBC (4.0-10.5) x10^3/uL RBC (4.1-5.4) x10^6/uL Hgb (12.0-16.0) g/dL Hct (35-47) % MCV (78-100) fL MCH (26-32) pg MCHC (32-36) g/dL RDW (11.5-14.0) % Plt Count (150-450) x10^3/uL MPV (7.5-11.0) fL Gran % (36.0-66.0) % Immature Gran % (Auto) (0.00-0.4) % Nucleat RBC Rel Count (0.00-0.1) % Eos # (Auto) (0-0.5) x10^3/uL Immature Gran # (Auto) (0.00-0.03) x10^3u/L Absolute Lymphs (auto) (1.0-4.6) x10^3/uL Absolute Monos (auto) (0.0-1.3) x10^3/uL Absolute Nucleated RBC (0.00-0.01) x10^3u/L Lymphocytes % (24.0-44.0) % Monocytes % (0.0-12.0) % Eosinophils % (0.00-5.0) % Basophils % (0.0-0.4) % Absolute Granulocytes (1.4-6.9) x10^3/uL Basophils # (0-0.4) x10^3/uL Sodium (137-145) mmol/L Potassium (3.5-5.1) mmol/L Chloride (98-107) mmol/L Carbon Dioxide (22-30) mmol/L Anion Gap (5-15) MEQ/L BUN (7-17) mg/dL Creatinine (0.52-1.04) mg/dL Estimated GFR ML/MIN Glucose (74-106) mg/dL Lactic Acid 1.3 (0.4-2.0) Calcium (8.4-10.2) mg/dL Total Bilirubin (0.2-1.3) mg/dL AST (14-36) U/L ALT (0-35) U/L Alkaline Phosphatase (38-126) U/L Serum Total Protein (6.3-8.2) g/dL Albumin (3.5-5.0) g/dL Amylase (30-110) U/L Lipase (23-300) U/L Urinalys Dipstick Clnc Urine Color (YELLOW) Urine Appearance (CLEAR) Urine pH (5-6) Ur Specific [place] (1.005-1.025) POC Urine Protein Conf (Negative) Urine Ketones (NEGATIVE) Urine Nitrite (NEGATIVE) Urine Bilirubin (NEGATIVE) Urine Urobilinogen (0-1) mg/dL Urine Leukocytes (NEGATIVE) Urine WBC (Auto) (0-5) /HPF Urine RBC (Auto) (0-2) /HPF U Epithel Cells (Auto) (FEW) /HPF Urine Bacteria (Auto) (NEGATIVE) /HPF Urine RBC (0-5) Trell/ul Ur Culture Indicated? Urine Glucose (NEGATIVE) mg/dL - Progress Progress: improved, pain not gone completely, re-examined Progress Note: 04/02/22 15:30 CAT scan abdomen and pelvis without contrast shows sigmoid wall thickening and pericolonic inflammatory changes likely related to diverticulitis. Counseled pt/family regarding: lab results, diagnosis, need for follow-up, rad results - Departure Departure Disposition: Home Clinical Impression: Sigmoid diverticulitis Condition: Stable Critical Care Time: No Referrals: MARTHA VILLEGAS MD [Primary Care Provider] - Follow up/PCP as directed Additional Instructions: Drink plenty of clear liquids. Advance your diet slowly once you no longer have abdominal pain. Take your antibiotics as prescribed. Follow-up with your primary care physician for further evaluation management. Prescriptions: Hydrocodone/APAP 5/325 [[place] 5/325 mg] 1 each PO Q8H PRN PRN #6 tablet MDD 3 PRN Reason: Pain Ciprofloxacin [Cipro 500 MG] 500 mg PO BID #14 tablet Metronidazole 500 mg [Flagyl 500 MG] 500 mg PO TID #21 tablet
[2022-04-02] MEDS ORDERED: Sodium Chloride 0.9% 1000 ML 1,000 ML IV STA (12:58)
[2022-04-02] MEDS ORDERED: Sodium Chloride 0.9% 1000 ML 1,000 ML ONE (13:47)
[2022-04-02 13:54] LABS: ALBUMIN 4.8 g/dL (3.5-5.0); ALKALINE PHOSPHATASE 51 U/L (38-126); AMYLASE 61 U/L (30-110); ANION GAP 15.6 MEQ/L (5-15); BLOOD UREA NITROGEN 15 mg/dL (7-17); CHLORIDE 106 mmol/L (98-107); Calcium 9.3 mg/dL (8.4-10.2); Carbon Dioxide 25 mmol/L (22-30); Creatinine 1 0.75 mg/dL (0.52-1.04); EST GLOMERULAR FILTRATION RATE > 60.0 ML/MIN; Glucose 99 mg/dL (74-106); LIPASE 40 U/L (23-300); Potassium 4.1 mmol/L (3.5-5.1); SGOT/AST 30 U/L (14-36); SGPT/ALT 20 U/L (0-35); SODIUM 142 mmol/L (137-145); Total Protein 7.8 g/dL (6.3-8.2)
[2022-04-02 13:55] LABS: Absolute Neutrophil Ct (ANC) 9.34 x10^3/uL (1.4-6.9); Basophil (Absolute #) 0.05 x10^3/uL (0-0.4); Eosinophil % 0.9 % (0.00-5.0); Eosinophil (Absolute #) 0.11 x10^3/uL (0-0.5); Hematocrit 43.7 % (35-47); Hemoglobin 14.2 g/dL (12.0-16.0); Lymphocyte (Absolute #) 1.89 x10^3/uL (1.0-4.6); Lymphocytes % 15.2 % (24.0-44.0); Mean Cell Volume 93.6 fL (78-100); Mean Corpuscular Hemoglobin 30.4 pg (26-32); Mean Corpuscular Hgb Concent. 32.5 g/dL (32-36); Mean Platelet Volume 9.6 fL (7.5-11.0); Monocyte (Absolute #) 1.04 x10^3/uL (0.0-1.3); Monocytes % 8.3 % (0.0-12.0); Neutrophil % 74.9 % (36.0-66.0); Platelet Count 326 x10^3/uL (150-450); Red Blood Count 4.67 x10^6/uL (4.1-5.4); Red Cell Distribution Width 13.3 % (11.5-14.0); White Blood Count 12.5 x10^3/uL (4.0-10.5)
[2022-04-02 14:03] LABS: RBC 0-2 /HPF (0-2)
[2022-04-02 14:04] LABS: Appearance CLEAR (CLEAR); Bilirubin NEGATIVE (NEGATIVE); Dipstick done @ ? MAIN LAB; Glucose NEGATIVE (NEGATIVE); Ketones NEGATIVE (NEGATIVE); Nitrite NEGATIVE (NEGATIVE); Protein,Urine Dip NEGATIVE (Negative); RBC SMALL Ery/ul (0-5); Specific Gravity 1.015 (1.005-1.025); Urobilinogen 0.2 mg/dL (0-1)
[2022-04-02 14:05] LABS: Urine Cultured Indicated? NO
[2022-04-02 14:29] VITALS: BP 116/75; PULSE 88; O2SAT 98
[2022-04-02] MEDS ORDERED: Levofloxacin 500 MG Tablet PO ONE (15:40)
[2022-04-02] MEDS ORDERED: Flagyl 500 MG PO ONE (15:40)
[2022-04-02] MEDS ORDERED: Levofloxacin 500 MG Tablet ONE (15:46)
[2022-04-02] MEDS ORDERED: Flagyl 500 MG ONE (15:47)
--- NOTE | 2022-04-02 21:46 | XRAY ---
Indication: Abdomen and pelvic pain. Multiple contiguous axial images obtained through the abdomen and pelvis without contrast. Comparison: January 29, 2015 Lung bases clear. Heart not enlarged. Noncontrasted stomach and bowel loops appear nonobstructed with normal appendix. Sigmoid colon now demonstrates mild wall thickening with pericolonic stranding favoring colitis. No free fluid/air. Again nonobstructing right renal punctate calculus and cholecystectomy. Remaining liver, pancreas, spleen, adrenal glands, kidneys, ureters, bladder, uterus, and aorta are unremarkable for noncontrast exam. Osseous structures intact again with mild degenerative changes throughout the spine. Impression: 1. New sigmoid bowel wall thickening with stranding favoring colitis. No complications. 2. Again nonobstructing right renal punctate calculus. Comment: Preliminary interpretation made by [facility]. No critical discrepancy.
== END 2022-04-02 16:01 | disposition home or self-care (01) ==
LOC: ED 12:30
DX: K57.32 Diverticulitis of large intestine without perforation or abscess without bleeding (principal); R10.30 Lower abdominal pain, unspecified; R50.9 Fever, unspecified; Z79.891 Long term (current) use of opiate analgesic; Z79.899 Other long term (current) drug therapy; Z86.16 Personal history of COVID-19
CPT/HCPCS: 36000; 36415; 74176; 80053; 81015; 82150; 83605; 83690; 85025; 99284; A9270-GY

== ENCOUNTER 2023-02-02 08:00 | Day surgery (SDC) | payer BC ==
--- NOTE | 2023-02-01 08:37 | HP ---
DATE OF SURGERY: 02/02/2023 HISTORY OF PRESENT ILLNESS: The patient is a 57-year-old female who presents with complaints of gastroesophageal reflux disease. She states she has had gastroesophageal reflux disease since she had her cholecystectomy 15 years ago. She has a dry cough and a lot of throat clearing. She is on some omeprazole and she has been on that for some time. She recently had flare up of her heartburn. She also reports a colonoscopy about two to three years ago. She had an episode of diverticulitis. She does feel some tugging and bloating in the left lower quadrant. PAST MEDICAL HISTORY: Reflux. Thyroid. Diverticulitis. Arthritis. PAST SURGICAL HISTORY: None. ALLERGIES: NKDA. MEDICATIONS: Levothyroxine. FAMILY HISTORY: None reported. SOCIAL HISTORY: Former smoker. REVIEW OF SYSTEMS: CONSTITUTIONAL: Denies fever or chills. CHEST: Denies shortness of breath. CVS: Denies chest pain. ABDOMEN: Reports left lower quadrant pain. PHYSICAL EXAMINATION: GENERAL: No acute distress. CHEST: Nonlabored. No shortness of breath. CVS: Regular rate and rhythm. ABDOMEN: Soft. IMPRESSION: Gastroesophageal reflux disease, epigastric pain, recent diverticulitis. PLAN: EGD and colonoscopy with Dr. Jonny Caceres. As dictated by Rachael Rowell NP.
[2023-02-02] MEDS ORDERED: Lactated Ringers 1,000 ML IV SCH (08:30)
[2023-02-02] MEDS ORDERED: Lactated Ringers 1,000 ML IV ONE (08:50)
[2023-02-02] MEDS ORDERED: DIPRIVAN 200 MG/20 ML IV ONE ×2 (09:19→10:18)
[2023-02-02] MEDS ORDERED: Xylocaine-Mpf 2% 5 Ml Vial ONE (09:20)
[2023-02-02] MEDS ORDERED: Versed 2 MG/2 ML Injection ONE (09:38)
[2023-02-02 11:13] VITALS: BP 120/88; PULSE 72; O2SAT 99
--- NOTE | 2023-02-02 12:02 | OP ---
SURGERY DATE/TIME: 02/02/2023 1009 PREOPERATIVE DIAGNOSES: 1) Epigastric pain. 2) Recent history of diverticulosis symptomatic. POSTOPERATIVE DIAGNOSES: 1) A 1 inch hiatal hernia. 2) Grade 1 gastroesophageal reflux disease. 3) Mild antritis. PROCEDURES: 1) EGD with cold biopsy. 2) Colonoscopy. SURGEON: Jonny Caceres M.D. ANESTHESIA: MAC. COMPLICATIONS: None. CONDITION: Stable. DESCRIPTION OF PROCEDURE: The patient taken to endoscopy. MAC sedation. Scope introduced. Pharyngoesophageal junction normal. Esophagus normal. There is a 1 inch hiatal hernia. There is grade 1 gastroesophageal reflux disease. Fundus, body normal. 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 Duodenal bulb, second portion normal. Scope is withdrawn looped upon itself. A 1 inch hiatal hernia. Anal digital examination satisfactory. Scope advanced to the cecum. On circumferential withdrawal, moderate internal hemorrhoids. Moderate sigmoid diverticulosis. No mucosal lesions. Follow up in five years.
== END 2023-02-02 11:30 | disposition home or self-care (01) ==
LOC: SDC 08:00
PROVIDERS: ATTEND Surgery
DX: K21.9 Gastro-esophageal reflux disease without esophagitis (principal); R10.13 Epigastric pain; K44.9 Diaphragmatic hernia without obstruction or gangrene; Z87.19 Personal history of other diseases of the digestive system; K29.50 Unspecified chronic gastritis without bleeding; K64.8 Other hemorrhoids; K57.30 Diverticulosis of large intestine without perforation or abscess without bleeding
CPT/HCPCS: J2250; J2704

== ENCOUNTER 2023-11-10 11:18 | Day surgery (SDC) | payer BC ==
[2023-11-10 11:39] VITALS: TEMP 96.7
[2023-11-10] MEDS: CEFAZOLIN 2 GM-D5W BAG** 2 GM/50 ML ML IV SCH (11:47)
[2023-11-10] MEDS: Lactated Ringers 1,000 ML IV SCH (11:47)
[2023-11-10 11:52] LABS: Hematocrit 41.9 % (35-47); Hemoglobin 13.8 g/dL (12.0-16.0); Mean Cell Volume 90.5 fL (78-100); Mean Corpuscular Hemoglobin 29.8 pg (26-32); Mean Corpuscular Hgb Concent. 32.9 g/dL (32-36); Mean Platelet Volume 8.9 fL (7.5-11.0); Platelet Count 317 x10^3/uL (150-450); Red Blood Count 4.63 x10^6/uL (4.1-5.4); White Blood Count 7.8 x10^3/uL (4.0-10.5)
[2023-11-10] MEDS ORDERED: Sodium Chloride 0.9% 1000 ML 1,000 ML ONE (12:14)
[2023-11-10 12:25] LABS: ABO TYPING O; Antibody Screen NEGATIVE (NEGATIVE); RH TYPING POSITIVE
[2023-11-10 12:34] LABS: ALBUMIN 4.3 g/dL (3.5-5.0); ANION GAP 9.8 MEQ/L (5-15); BILIRUBIN,TOTAL 0.4 mg/dL (0.2-1.3); Calcium 9.5 mg/dL (8.4-10.2); Creatinine 1 0.76 mg/dL (0.52-1.04); EST GLOMERULAR FILTRATION RATE 91.9 ML/MIN; Potassium 3.9 mmol/L (3.5-5.1); Total Protein 7.3 g/dL (6.3-8.2)
[2023-11-10] MEDS ORDERED: SUBLIMAZE 100 MCG/2 ML ONE (12:54)
[2023-11-10] MEDS ORDERED: Xylocaine-Mpf 2% 5 Ml Vial ONE (12:55)
[2023-11-10] MEDS ORDERED: Decadron 4 MG INJ ONE (12:55)
[2023-11-10] MEDS ORDERED: Quelicin Fliptop 200 MG/10 ML ONE (12:55)
[2023-11-10] MEDS ORDERED: Zofran 4 MG/2 ML VIAL ONE (12:55)
[2023-11-10] MEDS ORDERED: DIPRIVAN 200 MG/20 ML IV ONE (12:55)
[2023-11-10] MEDS ORDERED: TRANDATE 20 MG/4 ML SYRINGE IV ONE (13:55)
--- NOTE | 2023-11-10 14:18 | OP ---
SURGERY DATE/TIME: 11/10/2023 9213 PREOPERATIVE DIAGNOSIS: Postmenopausal bleeding and cervical stenosis. POSTOPERATIVE DIAGNOSIS: Postmenopausal bleeding and cervical stenosis. PROCEDURES: 1) Diagnostic hysteroscopy. 2) Fractional D&C. SURGEON: Joby Gamez M.D. ANESTHESIA: General endotracheal anesthesia. OPERATIVE FINDINGS: 1) Severe cervical stenosis. 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 COMPLICATIONS: None. QUANTITATIVE BLOOD LOSS: 5 cc. DESCRIPTION OF PROCEDURE AND FINDINGS: The patient was brought to the operating room suite and general anesthesia was administered. She was placed in the dorsal lithotomy position with antiskid measures. Her vagina and perineum were then sterilely prepped and draped in the usual fashion. A weighted speculum is placed into the vagina and then the anterior lip of the cervix was grasped with single tooth tenaculum. The external cervical os was completely closed. A small lacrimal duct dilator was used to probe the external os and gain access to the cervical canal. Gradual dilation of the external cervix was accomplished and then the hysteroscope was placed. Hydrodilation was used to further distend the internal cervical os and then the hysteroscope was removed. Further mechanical dilation did allow access into the endometrial cavity. Visualization of the endometrial cavity was limited due to extensive white adhesions throughout the endometrial cavity. The tubal ostia were not visualized. There was no evidence of endometrial polyp and no abnormal appearing endometrial tissue. The endometrial cavity was free of any other defects or abnormality. There were no distortions of the endometrial cavity noted. The hysteroscope was withdrawn and endocervical curettage was performed. The cervix was then further dilated to allow admission of a #3 sharp curette. Endometrial curettage was performed and a good uterine cry was noted. The endocervical and endometrial tissues were sent to pathology for evaluation. The procedure was then completed. Weighted speculum and single tooth tenaculum were removed, general anesthesia was reversed and the patient was then transported to the recovery room in stable and satisfactory condition having tolerated the procedure well. All sponge, instrument and needle counts were correct.
[2023-11-10 14:48] VITALS: RESP 18; O2SAT 98
[2023-11-10 14:53] VITALS: BP 138/72; PULSE 84
== END 2023-11-10 14:53 | disposition home or self-care (01) ==
LOC: SDC 11:18
PROVIDERS: ATTEND Obstetrics & Gynecology
DX: N95.0 Postmenopausal bleeding (principal); N88.2 Stricture and stenosis of cervix uteri
CPT/HCPCS: 36415; 80053; 85027; 86850; 86900; 86901; J0330; J0690; J1100; J2405; J2704; J3010